=== PATIENT | female | born 1955 | race Caucasian/White ===

== ENCOUNTER 2023-07-24 11:20 | Outpatient (CLI) | payer MEDICARE ==
[2023-07-24 12:23] LABS: Hematocrit 44.3 % (34.9-44.5); Mean Corpuscular HGB CONC 33.9 g/dL (32.0-36.0); Mean Corpuscular Volume 100.5 fl (81.6-98.3); Platelet Count 300 10x3/uL (150-450); RBC Distribution Width 11.6 % (11.5-14.5); Red Blood Cell (RBC) Count 4.41 10x6/uL (3.90-5.03); White Blood Cell (WBC) Count 9.2 10x3/uL (3.5-10.5)
[2023-07-24 12:41] LABS: Anion Gap 14 mmol/L (10-20); BUN (Urea Nitrogen) 14 mg/dL (9.8-20.1); Calc. Creatinine Clearance 0 mL/min (70-130); Calcium 9.5 mg/dL (7.8-10.44); Carbon Dioxide 29 mmol/L (23-31); Chloride 100 mmol/L (98-107); Estimated GFR 81; Glucose 96 mg/dL (80-115); Potassium 4.7 mmol/L (3.5-5.1); Sodium 138 mmol/L (136-145)
== END 2023-07-24 11:21 | disposition home or self-care (01) ==
LOC: CSHLAB 11:20
PROVIDERS: ATTEND Podiatrist Foot & Ankle Surgery
DX: Z01.818 Encounter for other preprocedural examination (principal); M77.41 Metatarsalgia, right foot; M20.41 Other hammer toe(s) (acquired), right foot; M21.611 Bunion of right foot; S93.529A Sprain of metatarsophalangeal joint of unspecified toe(s), initial encounter
CPT/HCPCS: 80048; 85027; 93005; 93010

== ENCOUNTER 2024-01-08 09:55 | Outpatient (CLI) | payer MEDICARE | END 2024-01-08 09:56 | disposition home or self-care (01) | LOC: CSHCT 09:55 | PROVIDERS: ATTEND Family Medicine | DX: R91.1 Solitary pulmonary nodule (principal) | CPT/HCPCS: 71250 ==